=== PATIENT | female | born 2005 | race Caucasian/White ===

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

== ENCOUNTER 2023-01-16 11:02 | Emergency (ER) | payer BC, SELFPAY ==
[2023-01-16 11:05] VITALS: BP 138/91; PULSE 116; RESP 18; TEMP 36.8; O2SAT 96; BMI 46.2
--- NOTE | 2023-01-16 11:19 | EXP.UTC ---
Discharge Plan Disposition Patient Disposition: Home, Self-Care Condition: Good Prescriptions Prescriptions: No Action hydrochlorothiazide 25 mg tablet 25 mg PO DAILY Patient Comments: TAKE 1 TABLET BY MOUTH ONCE DAILY IN THE MORNING drospirenone-ethinyl estradiol [HERLINDA (28)] 3-0.02 mg tablet 1 tab PO DAILY cefadroxil 500 mg capsule 500 mg PO BID 10 Days Qty: 20 0RF ondansetron 4 mg tablet,disintegrating 4 mg PO Q8H PRN (Reason: nausea and vomiting) 4 Days Qty: 12 0RF phenazopyridine 200 mg tablet 200 mg PO Q8H PRN (Reason: pain) Qty: 20 0RF Referrals Follow up/Referrals: Provider,Referral, MD [Primary Care Provider] - See instructions Activity Restrictions/Add. Instructions Additional Instructions/Restrictions: Drink plenty of fluids. Follow up with your regular doctor. GO TO THE ER FOR ANY WORSENING SYMPTOMS Stand Alone Forms Stand Alone Forms: Work/School Release Instructions Patient Instructions: DI for Amenorrhea Discharge ED Provider: Yuri Alonzo [facility] General Stated complaint: wants pregancy test Time Seen by Provider: 01/16/23 11:19 History of Present Illness Provider Complaint: She is here with complaints of her period being approx 20 days late. She took a home test yesterday that was positive. She is here to have this confirmed. Related Data Home Medications Medication Instructions Recorded Confirmed hydrochlorothiazide 25 mg tablet 25 mg PO DAILY High blood pressure 09/22/21 11/18/22 drospirenone 3 mg-ethinyl 1 tab PO DAILY Control 11/18/22 11/18/22 estradiol 0.02 mg tablet (HERLINDA (28)) Previous Rx's Medication Instructions Recorded cefadroxil 500 mg capsule 500 mg PO BID 10 days #20 caps 11/18/22 ondansetron 4 mg disintegrating 4 mg PO Q8H PRN nausea and 11/18/22 tablet vomiting 4 days #12 tabs phenazopyridine 200 mg tablet 200 mg PO Q8H PRN pain 6 doses #20 11/18/22 tabs Allergies Allergy/AdvReac Type Severity Reaction Status Date / Time No Known Allergies Allergy Verified 01/16/23 11:39 [facility] Disclaimer: The information contained in this section may have been updated after the patient was seen, as this information can be updated by other users. Medical History Abnormal uterine bleeding Asthma Hirsutism History of hypertension Morbid obesity with BMI of 45.0-49.9, adult PCOS (polycystic ovarian syndrome) Surgical History H/O left knee surgery History of tonsillectomy Hx of appendectomy S/P cholecystectomy Family History Other Heart attack Social History Smoking Status: Current some day smoker tobacco type: cigarettes packs per day: 1 alcohol intake: current substance use type: denies use current occupational status: employed Travel in the last 8 weeks: None household members: family housing: house current occupation: [employer] current occupational exposures/hazards: No caffeine: Yes ROS Obtained: Yes All systems reviewed & no additional complaints except as documented Constitutional Constitutional: Denies chills and Denies fever(s) Eyes Eyes: Denies eye discharge ENT Ears, Nose, Mouth, and Throat: Denies dizziness, Denies otalgia and Denies sore throat Cardiovascular Cardiovascular: Denies chest pain Respiratory Respiratory: Denies shortness of breath, Denies chest congestion, Denies cough, Denies stridor and Denies wheezing Gastrointestinal Gastrointestingal: Denies nausea or vomiting Musculoskeletal Musculoskeletal: Reports system reviewed and no additional complaints, except as documented and Denies arthralgias Integumentary/Breasts Skin/Breast: Denies rash Neurologic Neurologic: Denies dizziness and Denies paresthesias Allergic/Immunologic All
[2023-01-16 11:24] LABS: UTC Pregnancy Test, Urine Negative (Negative)
[2023-01-16 11:39] VITALS: BP 138/91; PULSE 116; RESP 18; TEMP 36.8; O2SAT 96
[2023-01-16 12:39] LABS: HCG Qualitative, Serum Negative (Negative)
== END 2023-01-16 11:39 | disposition home or self-care (01) ==
PROVIDERS: Emergency Provider Nurse Practitioner Family
DX: N91.2 Amenorrhea, unspecified (principal); I10 Essential (primary) hypertension; J45.909 Unspecified asthma, uncomplicated; L68.0 Hirsutism; E66.01 Morbid (severe) obesity due to excess calories; Z68.54 Body mass index [BMI] pediatric, 95th percentile for age to less than 120% of the 95th percentile for age
CPT/HCPCS: 81025; 84703; 99203; 99212; G0463

== ENCOUNTER 2023-09-03 16:05 | Observation (INO) | payer SELFPAY ==
[2023-09-03] VITALS (7 sets, daily range): BP systolic 105–134; BP diastolic 61–79; PULSE 81–91; RESP 12–20; TEMP 36.4–36.9; O2SAT 97–100; BMI 51.0; BMI 49.6
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
[2023-09-03 17:06] LABS: Basophils # 0.1 K/mm3 (0-0.2); Basophils % 0.4 % (0.1-2.0); Eosinophils # 0.1 K/mm3 (0.0-0.4); Eosinophils % 0.5 % (0.1-12.0); Hematocrit 42.2 % (37.0-47.0); Hemoglobin 13.8 g/dL (12.2-16.2); Lymphocytes # 2.3 K/mm3 (0.7-4.5); Lymphocytes % 15.6 % (10-50); Mean Corpuscular HGB Conc 32.8 g/dL (31.8-35.4); Mean Corpuscular Hemoglobin 27.2 pg (27.0-31.2); Mean Corpuscular Volume 82.8 fl (81-99); Mean Platelet Volume 8.1 fl (7.4-10.4); Monocytes # 0.6 K/mm3 (0.1-1.0); Monocytes % 4.2 % (1.7-9.3); Neutrophils # 11.6 K/mm3 (1.8-7.8); Neutrophils % 79.2 % (37.0-80.0); Platelet Count 285 K/mm3 (142-424); Red Blood Count 5.09 M/mm3 (4.20-5.40); Red Cell Distribution Width 14.8 % (11.5-17.5); White Blood Count 14.6 K/mm3 (4.5-13.0)
--- NOTE | 2023-09-03 17:08 | ECG_ITS ---
APPROVED REPORT Exam: Resting ECG HR:77 bpm ECG Measurements Heart Rate 77 AXES AK 166 P 64 QRSd 109 QRS 34 QT 405 T 31 QTc 437 Conclusion SINUS RHYTHM NORMAL ECG UNCONFIRMED REPORT Electronically signed by : Yuri Delgado, 09/03/2023 23:13:29
[2023-09-03 17:11] LABS: Chloride 106 mmol/L (98-107); HCG Qualitative, Serum Negative (Negative); Potassium 4.3 mmoL/L (3.5-5.1); Sodium 139 mmol/L (136-145)
[2023-09-03 17:13] LABS: Amylase 52 U/L (30-110)
[2023-09-03 17:14] LABS: Alanine Aminotransferase 57 U/L (12-78); Albumin Level 4.6 g/dl (3.5-5.0); Albumin/Globulin Ratio 1.5 (1.1-1.8); Alkaline Phosphatase 103 U/L (38-126); Anion Gap 8.3 mEq/L (5-15); Aspartate Amino Transferase 52 U/L (14-36); Bilirubin,Total 0.5 mg/dl (0.2-1.3); Blood Urea Nitrogen 16 mg/dl (7-17); Calcium 9.7 mg/dl (8.4-10.2); Carbon Dioxide 29 mmol/L (22.0-30.0); Estimated Glomerular Filt Rate 107 ml/min (>60); GFR (African American) 129 ML/MIN (>60); Globulin 3.1 g/dL (1.3-3.2); Glucose 87 mg/dl (74-100); Lipase 62 U/L (23-300); Total Protein,Serum 7.7 g/dl (6.3-8.2)
--- NOTE | 2023-09-03 17:14 | PC.NURSE ---
Pt gone to RAD
[2023-09-03 17:15] LABS: Activated Partial Thrombo Time 26.9 seconds (22.8-30.6); INR 1.01 (0.9-1.1); Prothrombin Time 10.9 seconds (10.1-12.5)
[2023-09-03 17:36] LABS: Troponin I < 0.01 ng/ml (0.00-0.034)
[2023-09-03] MEDS: IOPAMIDOL-370 (76%);100ML BOTTLE 188 ML IV (17:45)
[2023-09-03] MEDS: SODIUM CHLORIDE 0.9% 10ML SYR (RAD ONLY) 10 ML IV (17:45)
[2023-09-03] MEDS: 0.9 % SODIUM CHLORIDE 50 ML VIAL 100 ML IV (17:45)
--- NOTE | 2023-09-03 18:04 | PC.NURSE ---
Pt returned from RAD
[2023-09-03] MEDS: ONDANSETRON 4MG/2ML VIAL 4 MG IV (18:25)
[2023-09-03] MEDS: LACTATED RINGERS 1000ML 1,000 ML 999 ML IV (18:25)
[2023-09-03] MEDS: MORPHINE 4MG/ML SYRINGE 4 MG IV (18:25)
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
[2023-09-03] MEDS: TET/DIPHTH/PERT-ADULT 0.5ML SYRINGE 0.5 ML IM (19:21)
[2023-09-03 20:05] LABS: Troponin I < 0.01 ng/ml (0.00-0.034)
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
--- NOTE | 2023-09-03 20:37 | PC.NURSE ---
notifed casting house worker of admission
[2023-09-03] MEDS: HYDROCODONE/APAP 5/325 MG TABLET 2 TAB PO (20:41)
--- NOTE | 2023-09-03 20:45 | PC.NURSE ---
Tried to call report, unable to give report as they're waiting for the nurse to come in. Jillian will call when she gets here.
--- NOTE | 2023-09-03 20:49 | PC.NURSE ---
attempted to call report to 2nd floor however nurse did not answer phone and charge nurse was in the middle of giving post mortem care. AGRICULTURAL EXTENSION OFFICER just advised to call back for report when they were available
--- NOTE | 2023-09-03 21:36 | PC.NURSE ---
Report given to Jillian
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
--- NOTE | 2023-09-03 21:53 | PC.NURSE ---
Patient arrived to floor via stretcher from ED at 21:49.
[2023-09-03] MEDS: PANTOPRAZOLE 40MG TABLET 40 MG PO (23:11)
[2023-09-03] MEDS: HEPARIN SODIUM 5,000 UNIT/ML VIAL 5000 UNIT SQ (23:11)
[2023-09-03] MEDS: ACETAMINOPHEN 500MG TAB 1000 MG PO (23:11)
[2023-09-04] MEDS: MORPHINE 2MG/ML SYRINGE 2 MG IV ×2 (02:11→11:13)
[2023-09-04 04:00] VITALS: BMI 49.6
--- NOTE | 2023-09-04 04:11 | PC.NURSE ---
PATIENT MEDICATED WITH MORPHINE 2 MG IVP AT 0211 WHICH WAS EFFECTIVE FOR PAIN CONTROL. HAS MULTIPLE ABRASIONS TO FACE, LEFT SHOULDER, RIGHT HIP/THIGH, AND BACK. DRSG TO RIGHT HAND LACERATION C/D/I. PATIENT IS NON-WEIGHT BEARING ON LEFT LE. WEARING ORTHO-BOOT ON RIGHT LE/FOOT AND MAY BEAR WT. CRUTCHES AT BEDSIDE. PUREWICK IN USE. MONITORING FOR COMPARTMENT SYNDROME.
[2023-09-04] MEDS: ACETAMINOPHEN 500MG TAB 1000 MG PO (05:21)
[2023-09-04] MEDS: HEPARIN SODIUM 5,000 UNIT/ML VIAL 5000 UNIT SQ (05:22)
[2023-09-04 06:38] LABS: Basophils % 0.4 % (0.1-2.0); Eosinophils # 0.1 K/mm3 (0.0-0.4); Eosinophils % 1.1 % (0.1-12.0); Hematocrit 36.3 % (37.0-47.0); Lymphocytes # 2.1 K/mm3 (0.7-4.5); Lymphocytes % 26.5 % (10-50); Mean Corpuscular HGB Conc 33.1 g/dL (31.8-35.4); Mean Corpuscular Hemoglobin 27.3 pg (27.0-31.2); Mean Corpuscular Volume 82.5 fl (81-99); Mean Platelet Volume 7.9 fl (7.4-10.4); Monocytes # 0.6 K/mm3 (0.1-1.0); Monocytes % 7.4 % (1.7-9.3); Neutrophils # 5.1 K/mm3 (1.8-7.8); Neutrophils % 64.5 % (37.0-80.0); Platelet Count 253 K/mm3 (142-424); Red Cell Distribution Width 15.1 % (11.5-17.5); White Blood Count 7.9 K/mm3 (4.5-13.0)
[2023-09-04 06:48] LABS: Alanine Aminotransferase 42 U/L (12-78); Albumin Level 3.8 g/dl (3.5-5.0); Albumin/Globulin Ratio 1.4 (1.1-1.8); Alkaline Phosphatase 83 U/L (38-126); Anion Gap 9.6 mEq/L (5-15); Aspartate Amino Transferase 31 U/L (14-36); Bilirubin,Total 0.7 mg/dl (0.2-1.3); Blood Urea Nitrogen 10 mg/dl (7-17); Calcium 8.6 mg/dl (8.4-10.2); Carbon Dioxide 27 mmol/L (22.0-30.0); Chloride 106 mmol/L (98-107); Creatinine Clearance Estimated 189 mL/min (50-200); Estimated Glomerular Filt Rate 127 ml/min (>60); GFR (African American) 154 ML/MIN (>60); Globulin 2.7 g/dL (1.3-3.2); Glucose 94 mg/dl (74-100); Potassium 3.6 mmoL/L (3.5-5.1); Sodium 139 mmol/L (136-145); Total Protein,Serum 6.5 g/dl (6.3-8.2)
--- NOTE | 2023-09-04 06:54 | PC.NURSE ---
[facility] REPORTS PATIENT HAS NOT VOIDED SINCE ADMISSION 2129. PATIENT SAYS SHE DOES NOT HAVE TO VOID. INFORMED HER THAT I WILL NEED TO I/O CATH 801 ML SCANNED IN BLADDER. PATIENT DOES NOT WANT TO HAVE CATH AND SAYS SHE WILL WAKE UP AND GO VOID. DR DE LA ROSA NOTIFIED.
[2023-09-04 07:33] VITALS: BP 93/67; PULSE 74; RESP 20; TEMP 36.6; O2SAT 99
--- NOTE | 2023-09-04 08:08 | PC.NURSE ---
pt states she is currently on no home medications, she is suppose to be on a b/p med but hasn't taken it in months.
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
--- NOTE | 2023-09-04 14:11 | CARE MANAGER ---
Spoke with patient regarding discharge planning. Patient was ordered a BSC and a W/C from the ED yesterday prior to admission. Order placed today for a sliding board due to patient unable to bear weight bilaterally.
--- NOTE | 2023-09-05 10:50 | CARE MANAGER ---
Contacted patient related to hospital discharge. She states she is doing well and denies questions or concerns. She is aware of follow up appointments. ARELI Tello
== END 2023-09-04 14:25 | disposition home or self-care (01) ==
LOC: ER 20:27 → 2ND 20:41
PROVIDERS: Nurse Practitioner Family; Admitting Provider Internal Medicine; Emergency Provider Student in an Organized Health Care Education/Training Program; Visit Provider Internal Medicine
DX: S82.54XA Nondisplaced fracture of medial malleolus of right tibia, initial encounter for closed fracture (principal); S82.52XA Displaced fracture of medial malleolus of left tibia, initial encounter for closed fracture; S61.411A Laceration without foreign body of right hand, initial encounter; I10 Essential (primary) hypertension; E66.01 Morbid (severe) obesity due to excess calories; Z68.42 Body mass index [BMI] 45.0-49.9, adult; V49.88XA Car occupant (driver) (passenger) injured in other specified transport accidents, initial encounter; Z87.891 Personal history of nicotine dependence; S40.012A Contusion of left shoulder, initial encounter; S30.810A Abrasion of lower back and pelvis, initial encounter
CPT/HCPCS: 12004; 29515 ×2; 36415; 70450; 70496; 70498; 71275; 72125; 72128; 72131; 72192; 73130; 73590; 73610; 73630; 74174; 80053; 82150; 83690; 84484; 84703; 85025; 85610; 85730; 90715; 93005; 99291; G0378; J2405; Q9967

== ENCOUNTER 2023-09-10 09:04 | Outpatient (CLI) | payer SELFPAY ==
--- NOTE | 2023-09-10 09:10 | XR_ITS ---
FINAL REPORT CLINICAL HISTORY: rt ankle fx COMPARISON: 09/03/2023 FINDINGS: Right ankle Three views were obtained. There is a presumed subacute fracture of the medial malleolus. Medial soft tissue swelling is seen. IMPRESSION: Fracture as above. Reviewed, Interpreted and Dictated by Ariel Steven III, MD Transcribed by Radha Price Authenticated and [facility]
--- NOTE | 2023-09-10 09:10 | XR_ITS ---
FINAL REPORT CLINICAL HISTORY: lt ankle fx COMPARISON: 09/03/2023 FINDINGS: Left tibia fibula Two views were obtained. There are postoperative changes from presumed ACL repair. There are moderate degenerative changes of the knee. There is a fracture of the anterior distal tibia which extends to the tibiotalar joint. IMPRESSION: Fracture as above. Dedicated left ankle radiographs or CT may be helpful. Reviewed, Interpreted and Dictated by Ariel Steven III, MD Transcribed by Radha Price Authenticated and [facility]
== END 2023-09-10 23:59 | disposition home or self-care (01) ==
LOC: RAD 09:05
PROVIDERS: Visit Provider Orthopaedic Surgery
DX: M25.572 Pain in left ankle and joints of left foot (principal); M25.571 Pain in right ankle and joints of right foot; S82.54XA Nondisplaced fracture of medial malleolus of right tibia, initial encounter for closed fracture; S82.55XA Nondisplaced fracture of medial malleolus of left tibia, initial encounter for closed fracture
CPT/HCPCS: 73590; 73610

== ENCOUNTER 2023-09-18 06:05 | Day surgery (SDC) | payer SELFPAY ==
[2023-09-17 12:59] VITALS: BMI 45.0
[2023-09-18] VITALS (12 sets, daily range): BP systolic 111–166; BP diastolic 66–91; PULSE 87–116; RESP 18–24; TEMP 36.1–43; O2SAT 95–100
[2023-09-18 06:29] LABS: Urine Pregnancy, HCG Qual. Negative (Negative)
[2023-09-18] MEDS: LACTATED RINGERS 1000ML 1,000 ML 25 ML IV (06:40)
--- NOTE | 2023-09-18 06:59 | EXP.ANES.CKL ---
[facility] Disclaimer: The information contained in this section may have been updated after the patient was seen, as this information can be updated by other users. Medical History Hirsutism Morbid obesity with BMI of 45.0-49.9, adult Abnormal uterine bleeding PCOS (polycystic ovarian syndrome) History of hypertension Asthma Surgical History H/O left knee surgery History of tonsillectomy Hx of appendectomy S/P cholecystectomy Family History Other Family history of hypertension Heart attack Social History (Updated 09/18/23 @ 06:29 by Paola Cunningham RN) Smoking Status: Current every day smoker tobacco type: cigarettes packs per day: 1 alcohol intake: never substance use type: denies use current occupational status: employed Travel in the last 8 weeks: None household members: family housing: house current occupation: [employer] current occupational exposures/hazards: No caffeine: Yes [facility] Anesthesia Checklist Patient Identification Patient Identification: Arm Band and Family Structural Data Admitted From: Home Planned Operative Procedure/s: ORIF left ankle fracture Consent for Planned Operative Procedure(s) Verified: Yes Verified Documents: Surgical Consent and History and Physical NPO Status Verified Time NPO: 00:00 Additional verifications Patient : No Anesthesia Reactions: No Hx Blood Transfusions: No Blood Transfusion Reaction: No Cephalosporin Allergy: No Previous Colonoscopy: No Airway Assessment Mallampati Score:: Class III C-Spine Mobility Assessed: Yes TMJ Mobility Assessed: Yes Dentition: Good Dentition Neurological Assessment Level of Consciousness: Awake, Alert, Appropriate and Follows Commands Hx Seizures: No Numbness or tingling in extremities: No Anesthesia Plan Anesthesia Risk discussed: Yes ASA Class: III Anesthesia Type: General w/block Preoperative Comments Pre-Operative Comments: Morbid obesity. Hypertension with prescribed Rx, but non compliant. Vapes.
--- NOTE | 2023-09-18 07:11 | XR_ITS ---
FINAL REPORT CLINICAL HISTORY: LEFT MEDIAL MALLEOLUS ORIF Fluoro time: .58 4.80 mGy FINDINGS: FLUOROSCOPY LESS THAN 1 HOUR HISTORY: Fluoroscopy guidance. FINDINGS: Fluoroscopic guidance was provided for left medial malleolus ORIF. Two spot films were obtained. A total of 0.58 minutes of fluoroscopy time were used. DAP: 4.80 mGy IMPRESSION: As above. Reviewed, Interpreted and Dictated by Ariel Steven III, MD Transcribed by Lona Browning Authenticated and [facility]
[2023-09-18] MEDS: CLINDAMYCIN PHOSPHATE/D5W 900 MG/50 ML PIGGYBACK 50 MG (07:39)
--- NOTE | 2023-09-18 08:22 | SUR.OPER ---
0739- upon arriving to the OR, pre casting materials on the left leg noted to be visibly soiled. Abundance of animal hair noted on the casting. Casting removed and area prepped. Opposite leg boot was covered to avoid any contamination by hair,etc. into the surgical site.
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
--- NOTE | 2023-09-18 08:51 | EXP.ANES.I ---
[facility] Anesthesia Record Part I Anesthesia Record I Intake, IV Amount: 700 Hydration: Adequate Estimated blood loss (mL): 2 Urine output (mL): 0 Blood Products used (#): none Blood Pressure: 114/66 SaO2: 96 Pulse Rate: 87 Airway Patency: Patent Respiratory Rate: 24 Temperature: 98 F Patient is:: Drowsy and Stable Stable to PACU at:: 08:45
--- NOTE | 2023-09-18 10:30 | P.PNANES_ITS ---
[facility] Disclaimer: The information contained in this section may have been updated after the patient was seen, as this information can be updated by other users. Medical History Hirsutism Morbid obesity with BMI of 45.0-49.9, adult Abnormal uterine bleeding PCOS (polycystic ovarian syndrome) History of hypertension Asthma Surgical History H/O left knee surgery History of tonsillectomy Hx of appendectomy S/P cholecystectomy Family History Other Family history of hypertension Heart attack Social History (Updated 09/18/23 @ 06:29 by Paola Cunningham RN) Smoking Status: Current every day smoker tobacco type: cigarettes packs per day: 1 alcohol intake: never substance use type: denies use current occupational status: employed Travel in the last 8 weeks: None household members: family housing: house current occupation: [employer] current occupational exposures/hazards: No caffeine: Yes [facility] Anesthesia Checklist Patient Identification Patient Identification: Arm Band and Family Structural Data Admitted From: Home Planned Operative Procedure/s: Right endoscopic CTR Consent for Planned Operative Procedure(s) Verified: Yes Verified Documents: Surgical Consent NPO Status Verified Time NPO: 00:00 Additional verifications Patient : No Anesthesia Reactions: No Hx Blood Transfusions: No Blood Transfusion Reaction: No Cephalosporin Allergy: No Previous Colonoscopy: No Airway Assessment Mallampati Score:: Class III C-Spine Mobility Assessed: Yes TMJ Mobility Assessed: Yes Dentition: Partials Neurological Assessment Level of Consciousness: Awake, Alert, Appropriate and Follows Commands Hx Seizures: No Numbness or tingling in extremities: No Anesthesia Plan Anesthesia Risk discussed: Yes ASA Class: II Anesthesia Type: General
--- NOTE | 2023-09-18 10:32 | P.PNANES_ITS ---
[facility] Anesthesia Record Part I Anesthesia Record I Intake, IV Amount: 500 Hydration: Adequate Estimated blood loss (mL): 1 Urine output (mL): 0 Blood Products used (#): none Blood Pressure: 145/75 SaO2: 95 Pulse Rate: 108 Airway Patency: Patent Respiratory Rate: 22 Temperature: 97.3 F Patient is:: Drowsy and Stable Stable to PACU at:: 10:26
--- NOTE | 2023-09-18 13:34 | P.PNANES_ITS ---
[facility] Anesthesia Record Part II Anesthesia Record Part II Discharge Time: 09:15 Destination: Surgical Day Care (OP Surgery) PACU nurse assessment reviewed?: Yes Patient Condition:: Good Anesthesia Complications:: None Swallowing reflex intact?: Yes Airway Patency: Patent Cyanosis?: No Blood Pressure: 139/86 SaO2: 95 Respiratory Rate: 18 Pulse Rate: 94 Temperature: 98 F Mental Status: Alert & Oriented Pain level:: 0 Nausea and/or vomitting:: None Intake, IV Amount: 0 Hydration: Adequate
== END 2023-09-18 09:46 | disposition home or self-care (01) ==
PROVIDERS: PCP Nurse Practitioner Family; Visit Provider Orthopaedic Surgery
PROC: (CPT 27766; principal; 2023-09-18 07:30)
DX: S82.55XA Nondisplaced fracture of medial malleolus of left tibia, initial encounter for closed fracture (principal); S82.54XA Nondisplaced fracture of medial malleolus of right tibia, initial encounter for closed fracture; E66.01 Morbid (severe) obesity due to excess calories; Z68.42 Body mass index [BMI] 45.0-49.9, adult; Z87.891 Personal history of nicotine dependence; V89.2XXA Person injured in unspecified motor-vehicle accident, traffic, initial encounter
CPT/HCPCS: 27766; 73600; 76000; 81025; 96374; C1713; J2405

== ENCOUNTER 2023-10-03 09:34 | Outpatient (CLI) | payer SELFPAY ==
--- NOTE | 2023-10-03 09:37 | XR_ITS ---
FINAL REPORT CLINICAL HISTORY: left ankle orif COMPARISON: 09/18/2023 FINDINGS: LEFT ANKLE Three views demonstrate 2 orthopedic screw securing the medial malleolus. An overlying cast obscures some of the detail. A 1.9 cm os trigonum is noted. IMPRESSION: Postoperative changes from ORIF of the medial malleolus. Reviewed, Interpreted and Dictated by Andrew De La Cruz MD Transcribed by Cristiana Suarez Authenticated and [facility]
== END 2023-10-03 23:59 | disposition home or self-care (01) ==
LOC: RAD 09:34
PROVIDERS: PCP Nurse Practitioner Family; Visit Provider Physician Assistant Surgical
DX: M25.572 Pain in left ankle and joints of left foot (principal); S82.55XA Nondisplaced fracture of medial malleolus of left tibia, initial encounter for closed fracture
CPT/HCPCS: 73610

== ENCOUNTER 2023-10-28 08:56 | Outpatient (CLI) | payer BC, SELFPAY ==
--- NOTE | 2023-10-28 09:06 | XR_ITS ---
FINAL REPORT CLINICAL HISTORY: Left ankle orif COMPARISON: 10/03/2023 FINDINGS: Three views show that the patient has undergone a prior ORIF of the medial malleolus. No residual fracture line is identified. There is a tiny avulsion fracture adjacent to the lateral malleolus, likely chronic. The joint spaces appear normal. IMPRESSION: Prior ORIF of the medial malleolus. Reviewed, Interpreted and Dictated by Aida Cadena MD Transcribed by Aleyda Leroy Authenticated and [facility]
--- NOTE | 2023-10-28 09:06 | XR_ITS ---
FINAL REPORT CLINICAL HISTORY: Rt Ankle Fx COMPARISON: None FINDINGS: RIGHT ANKLE: Three views reveal a transverse fracture of the medial malleolus. The joint spaces appear normal. IMPRESSION: Transverse fracture of the medial malleolus. Reviewed, Interpreted and Dictated by Aida Cadena MD Transcribed by Aleyda Lreoy Authenticated and [facility]
== END 2023-10-28 23:59 | disposition home or self-care (01) ==
LOC: RAD 08:58
PROVIDERS: PCP Nurse Practitioner Family; Visit Provider Physician Assistant
DX: M25.572 Pain in left ankle and joints of left foot (principal); S82.54XA Nondisplaced fracture of medial malleolus of right tibia, initial encounter for closed fracture; Z98.890 Other specified postprocedural states
CPT/HCPCS: 73610

== ENCOUNTER 2023-11-18 09:35 | Outpatient (CLI) | payer BC, SELFPAY ==
--- NOTE | 2023-11-18 09:38 | XR_ITS ---
FINAL REPORT CLINICAL HISTORY: Left ankle pain FINDINGS: LEFT ANKLE Three views of the left ankle were obtained. There is ORIF of the medial malleolus. Otherwise, no fracture is identified. There is multijoint degenerative disease. The visualized joint spaces are normally aligned. Soft tissue edema is noted. IMPRESSION: Post-ORIF of the medial malleolus. No acute bony abnormality. Reviewed, Interpreted and Dictated by Emma Hardwick MD Transcribed by Ibeth Whitman Authenticated and [facility]
--- NOTE | 2023-11-18 09:38 | XR_ITS ---
FINAL REPORT CLINICAL HISTORY: LEFT ORIF FINDINGS: RIGHT ANKLE 3 views of the right ankle were obtained. There is a fracture of the medial malleolus which is slightly displaced. The mortise is intact. Visualized joint spaces are normally aligned. Soft tissue edema is noted. IMPRESSION: Slightly displaced fracture of the medial malleolus. Reviewed, Interpreted and Dictated by Emma Hardwick MD Transcribed by Ibeth Whitman Authenticated and [facility]
== END 2023-11-18 23:59 | disposition home or self-care (01) ==
LOC: RAD 09:36
PROVIDERS: PCP Nurse Practitioner Family; Visit Provider Physician Assistant
DX: M25.571 Pain in right ankle and joints of right foot (principal); M25.572 Pain in left ankle and joints of left foot; S82.51XA Displaced fracture of medial malleolus of right tibia, initial encounter for closed fracture; S82.55XA Nondisplaced fracture of medial malleolus of left tibia, initial encounter for closed fracture; Z98.890 Other specified postprocedural states
CPT/HCPCS: 73610

== ENCOUNTER 2024-03-27 10:18 | Outpatient (CLI) | payer BC, SELFPAY ==
[2024-03-27 11:43] LABS: HCG,Quantitative < 2 mIU/ml (0-5.42)
[2024-03-27 11:54] LABS: Thyroid Stimulating Hormone 0.88 uIU/mL (0.465-4.68)
[2024-03-27 12:34] LABS: HIV (1&2) Antibody Rapid NONREACTIVE (NONREACTIVE)
[2024-03-28 07:14] LABS: HCV Ab Non Reactive (Non Reactive); Hepatitis B Surface Antigen Negative (Negative)
[2024-03-28 08:18] LABS: Estradiol 27.7 pg/mL (.); FSH 6.3 mIU/mL (.); Prolactin 40.2 ng/mL (4.8-33.4); Testosterone,Total 29 ng/dL (13-71)
[2024-03-28 09:24] LABS: Rapid Plasma Reagin Ab Titer Non Reactive titer (NonRea<1:1)
[2024-03-29 12:19] LABS: Insulin Level Total 22.6 uIU/mL (2.6-24.9)
== END 2024-03-27 23:59 | disposition home or self-care (01) ==
LOC: LAB 10:19
PROVIDERS: Visit Provider Obstetrics & Gynecology
DX: N91.1 Secondary amenorrhea (principal); Z72.51 High risk heterosexual behavior
CPT/HCPCS: 36415; 82626; 82670; 83001; 83036; 83498; 83525; 84146; 84403; 84443; 84702; 86593; 86803; 87340; 87389

== ENCOUNTER 2024-04-01 08:27 | Outpatient (CLI) | payer BC, SELFPAY ==
--- NOTE | 2024-04-01 08:44 | US_ITS ---
PROCEDURE: US TRANSVAGINAL CLINICAL INDICATION: Secondary Amenorrhea COMPARISON: CT CT ANGIO ABDOMEN PELVIS from 09/03/2023 FINDINGS: Transvaginal sonographic images of the pelvis were obtained. UTERUS: 6.2cm x 5.6 cmx 4.5cm retroverted with a combined endometrial thickness of 7.7mm. There are several small nabothian cysts in the cervix. LEFT OVARY: 2.0cmx2.1cmx2.7cm with a volume of 5.9ml. There are multiple small peripheral follicles giving the ovary a polycystic appearance. RIGHT OVARY: 3.9 cmx 3.0cmx2.5 cm with a volume of 15.2ml. There are multiple small peripheral follicles giving the ovary a polycystic appearance. There is fluid adjacent to the right ovary. There is a small cyst measuring 11 mm adjacent to the right ovary that is likely a hydatid of Morgagni Both ovaries are seen and appear polycystic. Doppler flow to both ovaries are seen. There is trace fluid in the cul-de-sac. IMPRESSION: 1. Retroverted uterus normal in shape and size. The endometrium is homogeneous and measures 7.7 mm. 2. Both ovaries are seen and appear polycystic. 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 3. There is trace fluid in the cul-de-sac. Dictated by: Ismael Gupta MD 04/01/2024 11:21 Ismael Gupta MD in OV 04/01/2024 11:21
[2024-04-01 09:24] LABS: Alanine Aminotransferase 31 U/L (12-78); Albumin Level 4.5 g/dl (3.5-5.0); Albumin/Globulin Ratio 1.8 (1.1-1.8); Alkaline Phosphatase 81 U/L (38-126); Anion Gap 12.1 mEq/L (5-15); Aspartate Amino Transferase 23 U/L (14-36); Bilirubin,Total 0.5 mg/dl (0.2-1.3); Blood Urea Nitrogen 12 mg/dl (7-17); Calcium 9.1 mg/dl (8.4-10.2); Carbon Dioxide 25 mmol/L (22.0-30.0); Chloride 107 mmol/L (98-107); Estimated Glomerular Filt Rate 156 ml/min (>60); GFR (African American) 188 ML/MIN (>60); Globulin 2.5 g/dL (1.3-3.2); Glucose 87 mg/dl (74-100); Potassium 4.1 mmoL/L (3.5-5.1); Sodium 140 mmol/L (136-145)
[2024-04-02 08:32] LABS: Prolactin 45.2 ng/mL (4.8-33.4)
== END 2024-04-01 23:59 | disposition home or self-care (01) ==
LOC: RAD 08:28
PROVIDERS: PCP Nurse Practitioner Family; Visit Provider Obstetrics & Gynecology
DX: E22.1 Hyperprolactinemia (principal); N91.1 Secondary amenorrhea
CPT/HCPCS: 36415; 76830; 80053; 84146

== ENCOUNTER 2024-04-24 09:10 | Outpatient (CLI) | payer BC, SELFPAY ==
--- NOTE | 2024-04-24 09:10 | MR_ITS ---
FINAL REPORT TECHNIQUE: Multiplanar MR, without and with gadolinium enhancement CLINICAL HISTORY: headaches/elevated prolactin COMPARISON: None FINDINGS: Diffusion sequences show no signal abnormality to indicate acute infarct. No mass, hemorrhage or edema is seen. Ventricles are normal. Major vascular flow voids are intact. The pituitary is mildly enlarged, measuring up to 9 mm in vertical height with a convex superior border. The pituitary stalk is midline. No obvious mass is identified, although pituitary protocol was not used for this examination. IMPRESSION: No MR findings were noted to explain headaches. Mild pituitary enlargement as described in the body of the report, no obvious mass is identified. However, given the patient's history of an elevated prolactin level, follow-up imaging using pituitary protocol is suggested for further evaluation if clinically indicated. Reviewed, Interpreted and Dictated by Aida Cadena MD Transcribed by Aleyda Leroy Authenticated and . [facility]
[2024-04-24] MEDS: GADOTERIDOL INJ 10ML SYRINGE 10 ML IV (10:02)
[2024-04-24] MEDS: GADOTERIDOL INJ 20ML SYRINGE 20 ML IV (10:02)
[2024-04-24] MEDS: SODIUM CHLORIDE 0.9% 10ML SYR (RAD ONLY) 10 ML IV (10:02)
== END 2024-04-24 23:59 | disposition home or self-care (01) ==
LOC: RAD 09:10
PROVIDERS: Visit Provider Obstetrics & Gynecology
DX: E22.1 Hyperprolactinemia (principal)
CPT/HCPCS: 70553; A9576

== ENCOUNTER 2024-07-08 08:08 | Outpatient (CLI) | payer MEDICAID, SELFPAY ==
[2024-07-08 08:44] LABS: Basophils % 0.4 % (0.1-2.0); Eosinophils # 0.1 K/mm3 (0.0-0.4); Eosinophils % 1.7 % (0.1-12.0); Hematocrit 37.5 % (37.0-47.0); Lymphocytes # 1.5 K/mm3 (0.7-4.5); Lymphocytes % 29.1 % (10-50); Mean Corpuscular Hemoglobin 27.8 pg (27.0-31.2); Mean Corpuscular Volume 86.8 fl (81-99); Mean Platelet Volume 10.1 fl (7.4-10.4); Monocytes # 0.4 K/mm3 (0.1-1.0); Monocytes % 6.6 % (1.7-9.3); Neutrophils # 3.3 K/mm3 (1.8-7.8); Platelet Count 264 K/mm3 (142-424); Red Blood Count 4.32 M/mm3 (4.20-5.40); Red Cell Distribution Width 13.2 % (11.5-17.5); White Blood Count 5.3 K/mm3 (4.8-10.8)
[2024-07-09 12:12] LABS: Prolactin 46.1 ng/mL (4.8-33.4)
== END 2024-07-08 23:59 | disposition home or self-care (01) ==
LOC: LAB 08:08
PROVIDERS: Visit Provider Obstetrics & Gynecology
DX: E22.1 Hyperprolactinemia (principal)
CPT/HCPCS: 36415; 84146; 85025

== ENCOUNTER 2024-07-17 13:42 | Outpatient (CLI) | payer MEDICAID, SELFPAY ==
--- NOTE | 2024-07-17 13:43 | MR_ITS ---
FINAL REPORT CLINICAL HISTORY: Pituitary Protocol, ruling out pituitary mass COMPARISON: 04/24/2024 FINDINGS: Multiplanar MR imaging of the brain was performed without and with contrast. There is no evidence of intracranial hemorrhage or mass. No abnormal extra-axial fluid collection is seen. The ventricular size is within normal limits. There is no evidence of shift of the midline structures. No area of abnormal restricted diffusion is identified. No abnormal contrast enhancement is seen. On the coronal images, the infundibulum lies midline. The superior margin of the pituitary again is convex. The pituitary gland measures up to 9 mm in craniocaudal dimension. On the pre and postinfusion images, no hypoenhancing nodules are identified. IMPRESSION: Redemonstration of the full appearance of the pituitary, stable as compared to previous. No discrete pituitary nodule identified. Reviewed, Interpreted and Dictated by Andrew De La Cruz MD Transcribed by Radha Price Authenticated and [facility]
[2024-07-17] MEDS: GADOTERIDOL INJ 20ML SYRINGE 20 ML IV (15:45)
[2024-07-17] MEDS: GADOTERIDOL INJ 10ML SYRINGE 10 ML IV (15:45)
[2024-07-17] MEDS: SODIUM CHLORIDE 0.9% 10ML SYR (RAD ONLY) 10 ML IV (15:46)
[2024-07-17] MEDS: 0.9 % SODIUM CHLORIDE 50 ML VIAL IV (15:46)
== END 2024-07-17 23:59 | disposition home or self-care (01) ==
LOC: RAD 13:43
PROVIDERS: Visit Provider Obstetrics & Gynecology
DX: G43.E09 Chronic migraine with aura, not intractable, without status migrainosus (principal); E22.1 Hyperprolactinemia
CPT/HCPCS: 70553; A9576